=== PATIENT | male | born 1960 | race Caucasian/White ===

== ENCOUNTER 2017-06-20 07:13 | Emergency (ER) | payer BC, OTHER ==
[2017-06-20 07:27] VITALS: BP 151/91
--- NOTE | 2017-06-20 07:54 | ED ---
HPI Chest Pain - HPI Summary HPI Summary: 57 yr old male with complaint of right rib pain. Onset 5 days ago when he leaned over in his truck on rocker panel and his right lower ribs were pushed in during this action. 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 Worse with bending, twisting and moving. He has not had SOB. Pain is moderate 4/10. - History of Current Complaint Chief Complaint: UCChestPain Time Seen by Provider: 06/20/17 07:32 - Allergy/Home Medications Allergies/Adverse Reactions: Allergies Allergy/AdvReac Type Severity Reaction Status Date / Time seasonal Allergy Congestion Uncoded 06/20/17 07:27 Home Medications: Home Medications Atorvastatin* [Lipitor*] 10 mg PO SEE INSTRUCTIONS 06/20/17 [History Confirmed 06/20/17] Colchicine* [Colcrys*] 0.6 mg PO DAILY 06/20/17 [History Confirmed 06/20/17] Testosterone [Androgel] 50 mg TD DAILY 06/20/17 [History Confirmed 06/20/17] PMH/Surg Hx/FS Hx/Imm Hx Cardiovascular History: Reports: Hx Hypertension - Surgical History Surgery Procedure, Year, and Place: B/L CARPAL TUNNEL. B/L CATARACTS Infectious Disease History: No Infectious Disease History: Denies: Traveled Outside the [place] in Last 30 Days - Family History Family History: cancer - Social History Occupation: Employed Full-time Lives: With Family Alcohol Use: Daily Alcohol Amount: 1 Substance Use Type: Reports: None Smoking Status (MU): Former Smoker Review of Systems Constitutional: Negative Positive: Other - right chest wall pain All Other Systems Reviewed And Are Negative: Yes Physical Exam Triage Information Reviewed: Yes Vital Signs On Initial Exam: Initial Vitals Temp Pulse Resp BP Pulse Ox 98.7 F 83 20 151/91 99 06/20/17 07:17 06/20/17 07:17 06/20/17 07:17 06/20/17 07:06/20/17 07:17 Vital Signs Reviewed: Yes Appearance: Positive: Well-Appearing, No Pain Distress Skin: Positive: Warm Head/Face: Positive: Normal Head/Face Inspection ENT: Positive: Normal ENT inspection Respiratory/Lung Sounds: Positive: Clear to Auscultation, Breath Sounds Present , Other - tender to palpate at about the 7th-8th rib in the right anterior axillary line. no bruise Cardiovascular: Positive: RRR. Negative: Murmur Abdomen Description: Positive: Nontender Musculoskeletal: Positive: Strength/ROM Intact Neurological: Positive: Sensory/Motor Intact, Alert, Oriented to Person Place, Time, CN Intact II-III Psychiatric: Positive: Normal Diagnostics - Vital Signs Vital Signs Temp Pulse Resp BP Pulse Ox 06/20/17 07:17 98.7 F 83 20 151/91 99 - Laboratory Lab Statement: Any lab studies that have been ordered have been reviewed, and results considered in the medical decision making process. Chest Pain Course/Dx - Course Course Of Treatment: 57 yr old with chest wall contusion, strain. DC home. FU PMD, and out of work rest of week to rest chest wall. - Diagnoses Provider Diagnoses: Hypertension, Chest wall contusion Discharge - Discharge Plan Condition: Good Disposition: HOME Prescriptions: Ibuprofen TAB* [Motrin TAB* 600 MG] 600 mg PO Q6H PRN #20 tab PRN Reason: Pain Scale 6-10 Patient Education Materials: Chest Wall Pain (ED), Hypertension (ED) Forms: *Work Release Referrals: Lakshmi Cuevas MD [Primary Care Provider] -
--- NOTE | 2017-06-20 08:15 | RAD ---
HISTORY: Right chest trauma, pain COMPARISONS: None VIEWS: 6, Frontal view of the chest with frontal and oblique views of the right hemithorax. FINDINGS: There is no displaced rib fracture or pneumothorax. The visualized lungs are clear. IMPRESSION: NO DISPLACED RIB FRACTURE OR PNEUMOTHORAX.
== END 2017-06-20 08:40 | disposition home or self-care (01) ==
LOC: UCCORT 07:13
DX: S20.219A Contusion of unspecified front wall of thorax, initial encounter (principal); I10 Essential (primary) hypertension; J30.2 Other seasonal allergic rhinitis; X58.XXXA Exposure to other specified factors, initial encounter; Y92.9 Unspecified place or not applicable
CPT/HCPCS: 99202; G0463

== ENCOUNTER 2019-07-14 08:51 | Emergency (ER) | payer BC, OTHER ==
--- OUTSIDE RECORDS SUMMARY | 2019-07-14 09:21 | XMS REPORT | Continuity of Care Document ---
:1960 External Reference #:[id number] Author Name Rosalina Bello M.D. Address [address] [address] Care Team Providers Name Role Phone Rosalina Bello M.D. 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 Onset: 07/18/2018 Retention of urine Rosalina Bello M.D. Onset: 05/13/2018 Screening for malignant neoplasm of prostate Rosalina Bello M.D. Onset: 03/2018 Benign prostatic hypertrophy with outflow Rosalina Bello M.D. Onset: 2017 obstruction Social History Type Date Description Comments Sex Unknown ETOH Use Uses Alcohol Daily Tobacco Use Start: Unknown End: Unknown Patient is a former smoker Recreational Drug Use Former Drug User Tobacco Use Start: Unknown quit 2000 Recreational Drug Use in high school Smoking Status Reviewed: 05/28/19 quit 2000 Allergies, Adverse Reactions, Alerts Description No Known Drug Allergies Medications Active Medications SIG Qnty Indications Ordering Date Provider Tadalafil take 1 tab once a 30tabs Rosalina Bello, 01/30/2019 20mg day as needed 3 M.D. Tablets hours before intercourse. Cialis 1 by mouth every 90tabs Rosalina Bello, 11/21/2018 5mg Tablets day M.DZachary Atorvastatin Calcium 1 by mouth M, W, F Unknown 10mg Tablets Allopurinol 1 by mouth every Unknown 100mg day Tablets Gabapentin 18 milliliters by Unknown 300mg/6ML mouth three times a Solution day *in place of 300 mg capsules which are difficult to swallow Lisinopril 1 by mouth every Unknown 10mg day Tablets Vitamin D3 Adult 2 by mouth qd. Unknown Gummies 1000Unit Chewtabs Medications Administered in Office Medication SIG Qnty Indications Ordering Provider Date Injection, Rosalina Esparza M.D. 07/08/2019 undecanoate, 1 mg- 750 units Injection Injection, testosterone Rosalina Bello M.D. 04/22/2019 undecanoate, 1 mg- 750 units Injection Injection, Rosalina Esparza M.D. 01/30/2019 undecanoate, 1 mg- 750 units Injection Injection, testosterone Rosalina Bello M.D. 11/21/2018 undecanoate, 1 mg- 750 units Injection Injection, testosterone Rosalina Bello M.D. 11/21/2018 undecanoate, 1 mg- 750 units Injection Injection, testosterone Rosalina Bello M.D. 09/06/2018 undecanoate, 1 mg- 750 units Injection Injection, Rosalina Esparza M.D. 08/06/2018 undecanoate, 1 mg- 750 units Injection Immunizations Description No Information Available Vital Signs Date Vital Result Comment 07/08/2019 3:35pm BP Systolic 156 mmHg BP Diastolic 92 mmHg Heart Rate 90 /min Respiratory Rate 17 /min O2 % BldC Oximetry 95 % Pain Level 0 07/08/2019 2:22pm BP Systolic 122 mmHg BP Diastolic 83 mmHg Body Temperature 99.5 F Heart Rate 48 /min Respiratory Rate 16 /min Height 69 inches 5'9" per pt Weight 220.00 lb BMI (Body Mass Index) 32.5 kg/m2 BSA (Body Surface Area) 2.15 m2 [place] body weight in kilograms 73 kg O2 % BldC Oximetry 96 % Pain Level 0 Results Test Date Facility Test Result H/L Range Note Laboratory test 05/07/2019 [facility] Testosterone 783 ng/dL [id number] 1, [address] ,[place] [address] [phone] Prostate Specific Antigen 1.75 ng/mL < 4.0 3 CBC W/Automated 05/07/2019 [facility] White Blood 7.0 K/uL Normal 3.4-10.[address] [place] [address] [phone] Red Blood Count 4.94 M/uL Normal 4.20-5.80 Hemoglobin 16.0 gm/dL Normal 12.8-17.0 Hematocrit 46.2 % Normal 38.0-48.0 Mean Cell Volume 93.5 fl Normal 80.0-96.0 Mean Corpuscular HGB 32.4 pg Normal 27.0-33.0 Mean Corpuscular HGB Conc 34.6 g/dL Normal 31.7-36.0 Platelet Count 214 K/uL Normal 155-360 Red Cell Distri Width SD 46.9 fl Normal 36-51 Red Cell Distri Width %CV 13.7 % Normal 11.6-15.8 Mean Platelet Volume 9.4 fl Normal 6.6-10.6 Neut% 67.5 % Normal 33.0-73.0 Lymph % 21.0 % Normal 20.0-42.0 [place] % 9.6 % Normal 0.0-10.0 Eo% 0.9 % Normal 0.0-6.6 Bas% 0.6 % Normal 0.0-1.1 Immature Grans 0.4 % Normal 0.0-5.0 NRBC % 0.0 /100WBC < 10/ 100 WBC Neut# 4.73 K/uL Normal 1.8-7.0 Lymph # 1.47 K/uL Normal 1.0-4.0 [place] # 0.67 K/uL Normal 0.0-0.8 Eos # 0.06 K/uL Normal 0.0-0.5 Baso # 0.04 K/uL Normal 0.0-0.1 Immature Grans Absolute 0.03 K/uL NRBC # 0.00 K/uL Comprehensive 05/07/2019 [facility] Glucose 105 mg/dL Normal 74-106 Metabolic Panel [address] [place] [address] [phone] BUN 19 mg/dL High 7-18 Creatinine 1.0 mg/dL Normal 0.6-1.3 Glom Filtration Rate, Estimate >60 mL/min >60 If >60 mL/min >60 4 BUN/Creat 19.0 ratio Sodium 137 mmol/L Normal 136-145 Potassium 3.9 mmol/L Normal 3.5-5.1 Chloride 103 mmol/L Normal 98-107 Carbon Dioxide 29 mmol/L Normal 21-32 Anion Gap 5 mEq/L Low 8-16 Calcium 9.0 mg/dL Normal 8.5-10.1 Total Protein 7.4 g/dL Normal 6.4-8.2 Albumin 4.0 g/dL Normal 3.4-5.0 Globulin 3.4 g/dL Normal 1.9-4.3 Alb/Glob 1.2 ratio Bilirubin,Total 0.5 mg/dL Normal 0.2-1.0 Sgot/Ast 34 U/L Normal 15-37 SGPT/Alt 45 U/L Normal 12-78 Alkaline Phosphatase 71 U/L Normal 45-117 1 E29.1 2 Adult male reference interval is based on a population of healthy nonobese males (BMI <30) between 19 and 39 years old. Pema, et.al. JCEM 2017,102;6453-8578. PMID: [id number]. Performed at: - [facility] [id number] Rubber Cutting Machine Tender: Patti Archuleta MD, Phone: [phone] THIS ASSAY IS NOT INTENDED A CANCER SCREENING TEST The concentration of PSA in a given specimen, determined with assays from different manufacturers, can vary due to differences in assay methods and reagent specificity. Values obtained from different assay methods cannot be used interchangeably. Method: Siemens Dimension [place] Chemiluminescent immunoassay. 4 Note: Persistent reduction for 3 months or more in an eGFR <60 mL/min/1.73 m2 defines CKD. Patients with eGFR values >/=60 mL/min/1.73 m2 may also have CKD if evidence of persistent proteinuria is present. The original MDRD equation for estimated GFR is not valid for patients less than 18 years of age. Additional information may be found at www.kdoqi.org. Procedures Date Code Description Status 07/08/2019 41586 Measurement Post Voiding Residual Urine By Completed Ultrasound,Non-Imaging 07/08/2019 28369 complex uroflowmetry electronic Completed 05/07/2019 06636 Measurement Post Voiding Residual Urine By Completed Ultrasound,Non-Imaging 05/07/2019 51791 complex uroflowmetry electronic Completed 04/22/2019 08631 Theraputic Or Diagnostic Injection Completed 01/30/2019 05908 Theraputic Or Diagnostic Injection Completed Medical Devices Description No Information Available Encounters Type Date Location Provider Dx Diagnosis Office Visit 07/08/2019 Urology Rosalina Bello E29.1 Testicular hypofunction 2:15p M.DZachary N40.1 Benign prostatic hyperplasia with lower urinary tract symp F52.21 Male erectile disorder R33.8 Other retention of urine Office Visit 04/22/2019 2:30p Urology Rosalina Bello E29.1 Testicular M.D. hypofunction N40.1 Benign prostatic hyperplasia with lower urinary tract symp F52.21 Male erectile disorder Office Visit 01/30/2019 3:15p Urology Rosalina Bello E29.1 Testicular M.D. hypofunction N40.1 Benign prostatic hyperplasia with lower urinary tract symp F52.21 Male erectile disorder Assessments Date Code Description Provider 07/08/2019 E29.1 Testicular hypofunction Rosalina Bello M.D. 07/08/2019 N40.1 Benign prostatic hyperplasia with lower Rosalina Bello M.D. urinary tract sympto 07/08/2019 F52.21 Male erectile disorder Rosalina Bello M.D. 07/08/2019 R33.8 Other retention of urine Rosalina Bello M.D. 05/07/2019 E29.1 Testicular hypofunction Rosalina Bello M.D. 05/07/2019 N40.1 Benign prostatic hyperplasia with lower Rosalina Bello M.D. urinary tract sympto 05/07/2019 F52.21 Male erectile disorder Rosalina Bello M.D. 04/22/2019 E29.1 Testicular hypoRosalina Mart M.D. 04/22/2019 N40.1 Benign prostatic hyperplasia with lower Rosalina Bello M.D. urinary tract sympto 04/22/2019 F52.21 Male erectile disorder Rosalina Bello M.D. 01/30/2019 E29.1 Testicular hypofunction Rosalina Bello M.D. 01/30/2019 N40.1 Benign prostatic hyperplasia with lower Rosalina Bello M.D. urinary tract sympto 01/30/2019 F52.21 Male erectile disorder Rosalina Bello M.D. Plan of Treatment 07/08/2019 - Rosalina Bello M.D.E29.1 Testicular hypofunctionNew Labs: Comprehensive Metabolic Panel, Ordered: 07/08/19Testosterone,Serum, Ordered: 10/26CBC W/Automated Diff, Ordered: 07/08/19Comments:Continue with the Aveed injections, will check safety labs in 6 [id number] Benign prostatic hyperplasia with lower urinary tract symptoComments:s/p prostate thermotherapy, patient symptomatically is feeling much better. He still takes Cialis 5mg daily , plan to continue with thatF52.21 Male erectile disorderComments:Doing well with 20 mg of Cialis as [id number] Other retention of urineComments: Patient still has a postvoid residual of around 150 cc. this has improved from before. We'll continue to monitor this and I will repeat a uroflow and a PVR in 6 months Functional Status Description No Information Available Mental Status Description No Information Available Referrals Description No Information Available
--- OUTSIDE RECORDS SUMMARY | 2019-07-14 09:21 | XMS REPORT | Continuity of Care Document ---
:1960 External Reference #:[id number] Author Name Lakshmi Cuevas MD Address [address] [place] [id number] Care Team Providers Name Role Phone Lakshmi Cuevas MD - Family Care Team Information Hospice Entrance Attendant [phone] Enzo Sullivan - Gastroenterology Care Team Information Hospice Entrance Attendant [phone] - Urology Care Team Information Hospice Entrance Attendant [phone] Problems Active Problems Provider Date Impotence of organic origin Lakshmi Cuevas MD Onset: 04/03/2012 Benign prostatic hypertrophy without outflow Lakshmi Cuevas MD Onset: obstruction Testicular hypofunction Lakshmi Cuevas MD Onset: 12/08/2011 Raised prostate specific antigen Lakshmi Cuevas MD Onset: 10/25/2011 Symptomatic inflammatory myopathy associated Lakshmi Cuevas MD Onset: with another disorder Carpal tunnel syndrome Lakshmi Cuevas MD Onset: 10/25/2011 Benign neoplasm of colon Lakshmi Cuevas MD Onset: 01/08/2007 Allergic rhinitis due to pollen Lakshmi Cuevas MD Onset: 01/08/2007 Gouty arthropathy Lakshmi Cuevas MD Onset: 09/20/2005 Mixed hyperlipidemia Lakshmi Cuevas MD Onset: 09/20/2005 Gout Lakshmi Cuevas MD Onset: 08/21/2005 Obesity Lakshmi Cuevas MD Onset: 08/21/2005 Family history of malignant neoplasm of Lakshmi Cuevas MD Onset: 2004 gastrointestinal tract Benign essential hypertension Lakshmi Cuevas MD Onset: 08/21/2005 Ex-smoker Lakshmi Cuevas MD Onset: 12/06/2015 Vitamin D deficiency Lakshmi Cuevas MD Onset: 12/06/2016 Disorder of muscle Lakshmi Cuevas MD Onset: 06/15/2017 Benign prostatic hypertrophy with outflow Lakshmi Cuevas MD Onset: 2018 obstruction Family history of aneurysm of abdominal aorta Lakshmi Cuevas MD Onset: Social History Type Date Description Comments Sex Unknown ETOH Use Currently consumes 1 shot every day. alcohol Tobacco Use Start: 10/08/74 Patient is a former 12/06/16 reviewed, End: 10/08/94 smoker smoked 1ppd for about 20 years, not eligible for lung cancr screening [facility] Recreational Drug Use Denies Drug Use Smoking Status Reviewed: Patient is a former 12/06/16 reviewed, 12/27/18 smoker smoked 1ppd for about 20 years, not eligible for lung cancr screening [facility] Exercise Type/Frequency 11/03/2013 Exercises regularly Exercises regularly by walking the dog. He feels he gets exercise adequately at work. Discussed 150min per week 10,000 steps per day 11/03/2013 Allergies, Adverse Reactions, Alerts Description No Known Drug Allergies Medications Active Medications SIG Qnty Indications Ordering Provider Date Colcrys 1 By Mouth Every 30tabs M10.09 Lakshmi Cuevas, 05/23/2016 0.6mg Tablets Day During Gout MD Attacks Allopurinol take 2 tablets 90tabs M10.09 Lakshmi Cuevas, 12/06/2015 100mg daily Tablets Vitamin D3 2 by mouth daily 180tabs E55.9 Lakshmi Cuevas, 11/09/2014 1000Unit with dinner with Tablets meat fat oil Atorvastatin Calcium 1 by mouth daily 90tabs E78.2 Lakshmi Cuevas, 04/30 MD 10mg Tablets Gabapentin 1 by mouth in 360caps G71.8 Lakshmi Cuevas, 12/20/2011 300mg morning, 2 at MD Capsules noon, 1 at bedtime Lisinopril take 1 tablet 90tabs I10 Lakshmi Cuevas, 09/20/2005 10mg Tablets daily in the MD morning Aveed E29.1 Rosalina Bello 750mg/3ML DR Solution Tadalafil 1 po daily E29.1 Rosalina Bello, 5mg Tablets N40.1 History Medications Aspirin 81 1 by mouth 3 x 90tabs E78.2 Lakshmi Cuevas MD 12/27/2018 - 81mg per week 12/27/2018 Tablets Immunizations CPT Code Status Date Vaccine Reaction Lot # [id number] Given 09/01/2018 Influenza Virus Vaccine,Quadrivalent,Split,Prese rv Free, 0.5mL,Im Q2037 Given 06/21/2017 Fluvirin Immunization Given At Pharmacy 52510 Given 10/18/2016 Influenza, Preservative Free 3 Years And Older 38163 Given 07/26/2015 Influenza, Preservative Free 3 Years And Older Q2037 Given 07/26/2015 Fluvirin Immunization 37856 Given 11/24/2014 Tetanus And Diptheria Toxoids [id number] For Adult Use-preservative free 69855 Given 07/02/2014 Afluria Or Fluvirin Flu Vac Intramuscular 29306 Given 06/23/2013 Afluria Or Fluvirin Flu Vac Intramuscular 62387 Given 07/18/2012 Afluria Or Fluvirin Flu Vac Intramuscular 79766 Given 08/01/2011 Afluria Or Fluvirin Flu Vac Intramuscular 69724 Given 08/11/2010 Afluria Or Fluvirin Flu Vac Intramuscular 81360 Given 10/15/2009 Administration Swine Flu Vaccine H1N1 79466 Given 08/21/2005 Tdap (Adacel) Ages 7 And Above Only 56431 Refused 06/24/2019 Shingrix (Shingles) Zoster AWARE CAN GET AT PHARMACY Vaccine HZV, Recombinant, Subunit, Adj Q2039 Refused 06/24/2019 Flu Vaccine NOS AWARE CAN GET AT PHARMACY [id number] Refused 06/28/2018 Shingrix (Shingles) Zoster Vaccine HZV, Recombinant, Subunit, Adj Q2039 Refused 06/28/2018 Flu Vaccine NOS will get at pharmacy Vital Signs Date Vital Result Comment 06/24/2019 2:20pm Weight 221.00 lb Heart Rate 88 /min BP Systolic 140 mmHg BP Diastolic 72 mmHg Respiratory Rate 18 /min Height 68.75 inches 5'8.75" BMI (Body Mass Index) 32.9 kg/m2 12/27/2018 2:13pm Weight 224.00 lb Heart Rate 100 /min BP Systolic 122 mmHg BP Diastolic 78 mmHg Respiratory Rate 18 /min Height 68.75 inches 5'8.75" O2 % BldC Oximetry 95 % ra BMI (Body Mass Index) 33.3 kg/m2 Results Test Date Facility Test Result H/L Range Note Lipid 06/17/2019 [facility] Cholesterol 190 mg/dL 50-199 1 Triglycerides 140 mg/dL 30-200 HDL 44 mg/dL 29-71 2 Chol/ HDL Ratio 4.3 ratio 4.0-6.7 VLDL 28 mg/dL 2-29 LDL (Calc) 118 mg/dL High 20-99 3 Laboratory test finding 06/17/2019 [facility] CPK 191 U/L 12-199 Uric Acid 6.8 mg/dL 2.6-8.4 Comprehensive Met Panel-[facility] 06/17/2019 [facility] Sodium 138 mmol/L 135- 146 4 Potassium 4.3 mmol/L 3.5-5.2 Chloride# 100 mmol/L 97-110 5 Carbon Dioxide 25 mmol/L 24-34 Calcium 9.6 mg/dL 8.5-10.5 6 Glucose 98 mg/dL 70-105 BUN 21 mg/dL 6-26 Creatinine 1.1 mg/dL 0.5-1.4 Total Protein 6.8 g/dL 6.0-8.0 Albumin 4.5 g/dL 3.6-4.9 Globulin 2.3 g/dL 2.0-3.5 A/G Ratio 2.0 Ratio 1.0-2.2 Total Bilirubin 0.9 mg/dL 0.1-1.3 Alkaline Phosphatase 54 U/L 24-140 Alt 26 U/L 3-42 Ast 24 U/L 8-42 Anion Gap 13 mmol/L 5-15 7 Female Egfr 53 Low >60 8 Male Egfr 71 >60 9 CBC With Auto Diff 06/17/2019 [facility] WBC 5.7 K/uL 4.1-11.0 RBC 5.23 M/uL 4.60-6.10 Hemoglobin 16.9 gm/dL 13.5-18.0 Hematocrit 49.2 % 41.0-53.0 MCV 94.0 fL 80.0-97.0 MCH 32.3 pg High 27.0-32.0 MCHC 34.3 g/dL 32.0-36.0 RDW 13.5 % 11.5-14.5 PLT Count 193 K/ul 140-400 MPV 7.4 FL 7.1-10.7 Neutrophil 61.5 % 35.0-75.0 Lymphocyte 27.3 % 16.0-52.0 Monocyte 9.7 % 2.0-10.0 Eosinophil 0.8 % 0.0-5.0 Basophil 0.7 % 0.0-4.0 Abs Neutrophils 3.5 K/uL 2.1-8.0 Abs Lymphocytes 1.6 K/uL 0.8-5.5 Abs Monocytes 0.6 K/uL 0.1-1.0 Abs Eosinophils 0.0 K/uL 0.0-0.5 Abs Basophils 0.0 K/uL 0.0-0.3 1 06/2019 ov 2 Per NCEP ATP III Guidelines: Results lower than 40 mg/dL are suggestive of increased risk for coronary artery disease. Results > or = to 60 mg/dL are considered a negative risk factor. 3 Per NCEP ATP III Guidelines: Normal Population <130 Patients with medical conditions: CHD/DM Optimal: <100 Borderline high: 130-159 High: 160-189 Very high: >189 4 Updated reference range on new analyzer 5 Updated reference range on new analyzer 6 Updated reference range 02-05-2019 7 Updated Reference Range 8 Concerning GFR Guidelines for Americans: Normal function or mild renal disease, if clinically at risk: >/= 60 mL/min Moderately decreased: 30-59 Severely decreased: 15-29 Renal failure: <15 There is reduced accuracy above 60ml/min/1.73 m squared, but the numeric value may be clinically useful in the near 60 range 9 Concerning GFR Guidelines: Normal function or mild renal disease, if clinically at risk: >/= 60 mL/min Moderately decreased: 30-59 Severely decreased: 15-29 Renal failure: <15 There is reduced accuracy above 60ml/min/1.73 m squared, but the numeric value may be clinically useful in the near 60 range Glomerular Filtration Rate (GFR) is estimated based on the CKD-EPI equation, which assumes a steady state for creatinine as recommended by the National Kidney Disease Education Program in conjunction with the National Institutes of Health and the National Kidney Foundation. Clinical conditions in which it may be necessary to measure GFR by using clearance methods include extremes of age and body size, severe malnutrition or obesity, diseases of skeletal muscle, paraplegia or quadriplegia, vegetarian diet, rapidly changing kidney function, and calculation of the dose of potentially toxic drugs that are excreted by the kidneys. Procedures Date Code Description Status 03/28/2016 87062297 Colonoscopy Completed Medical Devices Description No Information Available Encounters Type Date Location Provider Dx Diagnosis Office Visit 12/27/2018 [facility] Lakshmi Cuevas MD Z00.00 Encntr for general 2:00p adult medical exam w/o abnormal findings E78.2 Mixed hyperlipidemia I10 Essential (primary) hypertension M10.09 Idiopathic gout, multiple sites E29.1 Testicular hypofunction N52.9 Male erectile dysfunction, unspecified N40.1 Benign prostatic hyperplasia with lower urinary tract symp G71.8 Other primary disorders of muscles Z87.891 Personal history of nicotine dependence Z12.5 Encounter for screening for malignant neoplasm of prostate Z12.11 Encounter for screening for malignant neoplasm of colon Z80.0 Family history of malignant neoplasm of digestive organs Z13.31 Encounter for screening for depression E66.9 Obesity, unspecified Z68.33 Body mass index (BMI) 33.0-33.9, adult Assessments Date Code Description Provider 06/24/2019 D48.5 Neoplasm of uncertain behavior of skin Lakshmi Cuevas MD 06/24/2019 I10 Essential (primary) hypertension Lakshmi Cuevas MD 06/24/2019 E78.2 Mixed hyperlipidemia Lakshmi Cuevas MD 06/24/2019 M10.09 Idiopathic gout, multiple sites Lakshmi Cuevas MD 06/24/2019 E29.1 Testicular hypofunction Lakshmi Cuevas MD 06/24/2019 N52.9 Male erectile dysfunction, unspecified Lakshmi Cuevas MD 06/24/2019 N40.1 Benign prostatic hyperplasia with lower Lakshmi Cuevas MD urinary tract sympto 06/24/2019 G71.8 Other primary disorders of muscles Lakshmi Cuevas MD 06/24/2019 Z87.891 Personal history of nicotine dependence Lakshmi Cuevas MD 06/24/2019 E66.9 Obesity, unspecified Lakshmi Cuevas MD 06/24/2019 Z82.49 Family history of ischemic heart disease and Lakshmi Cuevas MD other diseases of the circulatory system 06/24/2019 Z68.32 Body mass index (BMI) 32.0-32.9, adult Lakshmi Cuevas MD 06/17/2019 E78.2 Mixed hyperlipidemia Lakshmi Cuevas MD 06/17/2019 E78.2 Mixed hyperlipidemia Schedule, Laboratory 06/17/2019 M10.09 Idiopathic gout, multiple sites Lakshmi Cuevas MD 06/17/2019 M10.09 Idiopathic gout, multiple sites Schedule, Laboratory 06/17/2019 I10 Essential (primary) hypertension Lakshmi Cuevas MD 06/17/2019 I10 Essential (primary) hypertension Schedule, Laboratory 06/17/2019 E29.1 Testicular hypofunction Lakshmi Cuevas MD 06/17/2019 E29.1 Testicular hypofunction Schedule, Laboratory 06/17/2019 E78.2 Mixed hyperlipidemia [facility] 06/17/2019 M10.09 Idiopathic gout, multiple sites [facility] 06/17/2019 I10 Essential (primary) hypertension [facility] 06/17/2019 E29.1 Testicular hypofunction [facility] 12/27/2018 Z00.00 Encounter for general adult medical Lakshmi Cuevas MD examination without abno 12/27/2018 E78.2 Mixed hyperlipidemia Lakshmi Cuevas MD 12/27/2018 I10 Essential (primary) hypertension Lakshmi Cuevas MD 12/27/2018 M10.09 Idiopathic gout, multiple sites Lakshmi Cuevas MD 12/27/2018 E29.1 Testicular hypofunction Lakshmi Cuevas MD 12/27/2018 N52.9 Male erectile dysfunction, unspecified Lakshmi Cuevas MD 12/27/2018 N40.1 Benign prostatic hyperplasia with lower Lakshmi Cuevas MD urinary tract sympto 12/27/2018 G71.8 Other primary disorders of muscles Lakshmi Cuevas MD 12/27/2018 Z87.891 Personal history of nicotine dependence Lakshmi Cuevas MD 12/27/2018 Z12.5 Encounter for screening for malignant Lakshmi Cuevas MD neoplasm of prostate 12/27/2018 Z12.11 Encounter for screening for malignant Lakshmi Cuevas MD neoplasm of colon 12/27/2018 Z80.0 Family history of malignant neoplasm of Lakshmi Cuevas MD digestive organs 12/27/2018 Z13.31 Encounter for screening for depression Lakshmi Cuevas MD 12/27/2018 E66.9 Obesity, unspecified Lakshmi Cuevas MD 12/27/2018 Z68.33 Body mass index (BMI) 33.0-33.9, adult Lakshmi Cuevas MD Plan of Treatment Future Appointment(s):12/22/2019 2:10 pm - Schedule, Laboratory at [facility]2019 2:00 pm - Lakshmi Cuevas MD at [facility]07/18/2019 2:30 pm - Lakshmi Cuevas MD at [facility]08/05/2019 8:40 am - Schedule, Laboratory at [facility]06/24/2019 - Lakshmi Cuevas MDD48.5 Neoplasm of uncertain behavior of skinComments: Abnormal concerning skin lesion Recommend biopsy, either here or refer to derm. pt agrees. Described shave biopsy procedure, pt agrees. reviewed options of observation, punch biopsy, referralFollow up:AAA US anytime; schedule shave biopsy left forearm oc15 ; schedule lipid/cmp/ Uric acid/ck in 6 weeks letter fu; next visit after 12/27/2018 for 30min annual exam and nonfasting labs 5 days prior (cbc, cmp, etc)I10 Essential (primary) hypertensionNew Labs:CBC with Auto Diff-[facility], Scheduled: 12/22/19New Xrays: Ultrasound AAA Screening, Scheduled: 06/30/19Comments:Htn--BPs appear borderline high this visit, reminded goal of BP < 130/80 ideally per new guidelines. Continue current meds, please call for medication side effects such as cough, rash or any concerns. Encouraged diet modified in fat and no added salt. Limit alcohol to < 1 per day. Encouraged regular exercise of 30 min most days per week. Encouraged pt to continue to monitor BP and call if > 140/90 on a regular basis. Please call if you feel your blood pressure is under 110 systolicand/or causing you symptoms such as dizziness, lightheadedness , or other concerns.E78.2 Mixed hyperlipidemiaNew Labs:Comprehensive Met Panel- [facility], Scheduled: 08/05/19Lipid, Scheduled: 08/05/19CPK, Scheduled: Comprehensive Met Panel-[facility], Scheduled: 12/22/19Lipid, Scheduled: 12/22/19CPK , Scheduled: 12/22/19Comments:high cholpatient is intermediate risk at 10% per AHA 2018 guidelines and risk assessment tool he does not have a 30% reduction in LDL, it should be under 100. he has the muscle condition so we have notincreased treatment. taking ator 10mg, 1 on mon sun and sun, he will call if has symptoms will try to increase the medications to 10mg daily and recheck labs in 6weeks monitor for side effects of muscle aches or crampswe watch for liver effects with labssince we are increasing will check labs in 6 weeksPlease call if you have any concerns.Aspirin may be considered, 81mg may be considered. For lifestyle, we also recommend: Low fat ( under 30gm per day), low chol diet ( under 300mg per day chol)focuson lean meat, nonfat 1% dairy, increased veg and fruit, whole grains weight lossexercise build to atleast 30min per day. Reviewed signs and symptoms of cardiovascular disease.M10.09 Idiopathic gout, multiple sitesNew Labs:Uric Acid-[facility], Scheduled: 08/05/19Uric Acid-[facility], Scheduled: 12/22/19Comments:Gout flare ups noneSxs controlled. uric acid creeping up and now over 6, occ flareupsincrease allopurinol back to 200mg daily taking colcrys prn--caution atorvastatin interaction check labs in 6 weeksFollow up:Followup:. (Follow up)E29.1 Testicular hypofunctionComments: testosterone deficiency. on injection testosterone, care with Dr Adam52.9 Male erectile dysfunction, unspecifiedComments:impotence. Pt with good results from meds. Reviewed side effects. Call prn concerns, continue meds. He asks for 20mg to split in 1/2, done.N40.1 Benign prostatic hyperplasia with lower urinary tract symptoComments:sp RESUME procedure, care with Dr Bello, doing well continues on low dose med a snoted.G71.8 Other primary disorders of musclesComments:inflammatory myopathy. consult to dr caban previously . now treated with gabapentinhe is stable .Z87.891 Personal history of nicotine dependenceNew Xrays:Ultrasound [facility] Screening, Scheduled: 06/30/19Comments: Former smoker, not a candidate for lung cancer screening based on history Seek care for persistent cough, unexpected weight loss/fatigue, coughing up blood as these can be signs of lung cjnzzzB83.9 Obesity, unspecifiedComments:continue to work on diet, exercise, weight lossZ82.49 Family history of ischemic heart disease and other diseases of the circulatory systemNew Xrays:Ultrasound [facility] Screening, Scheduled: 06/30/19Comments:family history abd aortic aneurysm, check screening USZ68.32 Body mass index (BMI) 32.0-32.9, adultComments: recommend healthy lower calorie diet and regular exercise to help with weight loss Functional Status Description No Information Available Mental Status Description No Information Available Referrals Description No Information Available
[2019-07-14 09:34] VITALS: BP 138/93
--- NOTE | 2019-07-14 10:28 | UC ---
Upper Extremity HPI - HPI Summary HPI Summary: 59 year old male with PMH + for HTN, elevated chol, prostate problems, no DM, no MRSA h/o, presents with left pinky defomity since last night when patient fell onto countertop. + immediate pain, no swelling, decreased ROM. recommended he be seen. + small wound opening bottom of finger, bleeding controlled. - History of Current Complaint Chief Complaint: UCUpperExtremity Stated Complaint: LEFT HAND PINKY COMPLAINT Time Seen by Provider: 07/14/19 10:03 Hx Obtained From: Patient ?: No Onset/Duration: Sudden Onset, Lasting Hours - last night ~ 5pm Pain Intensity: 9 Pain Scale Used: 0-10 Numeric Location Of Pain: Is Discrete @ - left pinky Character: Throbbing Associated Signs And Symptoms: Positive: Numbness/Tingling - Allergies/Home Medications Allergies/Adverse Reactions: Allergies Allergy/AdvReac Type Severity Reaction Status Date / Time seasonal Allergy Congestion Uncoded 07/14/19 09:28 Home Medications: Home Medications Ibuprofen TAB* [Motrin TAB* 600 MG] 200 mg PO Q6H PRN 07/14/19 [History Confirmed 07/14/19] PMH/Surg Hx/FS Hx/Imm Hx Previously Healthy: No - HTN, elevated chol, Cardiovascular History: Hypertension - Surgical History Surgical History: Yes Surgery Procedure, Year, and Place: B/L CARPAL TUNNEL. B/L CATARACTS. RESUME PROSTATE SURGERY - Family History Known Family History: Positive: Non-Contributory Family History: cancer - Social History Alcohol Use: Daily Alcohol Amount: 1 Substance Use Type: None Smoking Status (MU): Former Smoker When Did the Patient Quit Smoking/Using Tobacco: 20+ years ago Review of Systems All Other Systems Reviewed And Are Negative: Yes Constitutional: Negative: Fever, Chills, Fatigue Neurovascular: Positive: Negative Musculoskeletal: Positive: Arthralgia, Decreased ROM, Myalgia. Negative: Edema Is Patient Immunocompromised?: No Physical Exam Triage Information Reviewed: Yes Appearance: Well-Appearing, No Pain Distress, Well-Nourished Vital Signs: Initial Vital Signs Temp 99.4 F 07/14/19 09:25 Pulse 106 07/14/19 09:25 Resp 17 07/14/19 09:25 BP 138/93 07/14/19 09:25 Pulse Ox 99 07/14/19 09:25 Vital Signs Reviewed: Yes Eyes: Positive: Conjunctiva Clear ENT: Positive: Hearing grossly normal Musculoskeletal: Positive: Other: - Pre-reduction, patient ROM decreased with dorsal deformity noted at PIP, non-tender to palpation, sensation intact, no edema, ecchymosis. Post-reduction able to flex/ extend at DIP, PIP, MCP with mild pain, decreased ROM of DIP, PIP of 0-30 due to pain, strength 2/5. SITLT at distal phalanx. Neurological: Positive: Alert, Muscle Tone Normal Psychological Exam: Normal Skin: Positive: Other - small wound at volar PIP crease, no erythema, irrigated , dressed with abx ointment. no bleeding noted. Upper Extremity Course/Dx - Course Course Of Treatment: Finger dislocation, reduced successfully, possible small avulsion fracture - Keflex three times daily x 5 days due to open wound and possible fracture - Follow up with orthopedics within 1-2 weeks if decreased strength, ROM of finger - Keep finger in splint while doing any activity, sleeping. May remove for gentle motion exercises throughout day, to wash/ shower, however be very careful as possibility of dislocating again high. Continue to wear splint at all times x 1 week, and during activities for the following week - Keep area covered, use antibiotic ointment over wound until closed - REturn with increased pain, deformity, drainage, painful movements - Differential Dx/Diagnosis Differential Diagnosis/HQI/PQRI: Fracture (Open), Fracture (Closed), Strain, Sprain Provider Diagnosis: Dislocation of fifth finger, metacarpal joint, proximal, left, closed Discharge ED - Sign-Out/Discharge Documenting (check all that apply): Patient Departure All imaging exams completed and their final reports reviewed: Yes - Discharge Plan Condition: Good Disposition: HOME Prescriptions: Cephalexin CAP* [Keflex CAP*] 500 mg PO TID #15 cap Patient Education Materials: Finger Dislocation (ED), Closed Reduction (ED) Referrals: Dre Hurtado MD [Medical Doctor] - Lakshmi Cuevas MD [Primary Care Provider] - Additional Instructions: Finger dislocation, reduced successfully, possible small avulsion fracture - Keflex three times daily x 5 days due to open wound and possible fracture - Follow up with orthopedics within 1-2 weeks if decreased strength, ROM of finger - Keep finger in splint while doing any activity, sleeping. May remove for gentle motion exercises throughout day, to wash/ shower, however be very careful as possibility of dislocating again high. Continue to wear splint at all times x 1 week, and during activities for the following week - Keep area covered, use antibiotic ointment over wound until closed - REturn with increased pain, deformity, drainage, painful movements - Billing Disposition and Condition Condition: GOOD Disposition: Home
== END 2019-07-14 10:50 | disposition home or self-care (01) ==
LOC: UCCORT 08:51
DX: S63.065A Dislocation of metacarpal (bone), proximal end of left hand, initial encounter (principal); I10 Essential (primary) hypertension; Z87.891 Personal history of nicotine dependence; Z91.09 Other allergy status, other than to drugs and biological substances; W19.XXXA Unspecified fall, initial encounter; Y92.9 Unspecified place or not applicable
CPT/HCPCS: 26700; 73140; 99212; G0463